=== PATIENT | male | born 2000 | race Caucasian/White ===

== ENCOUNTER 2021-04-09 20:00 | Emergency (ER) | payer OTHER, SELFPAY ==
[2021-04-09 20:53] VITALS: BP 110/65; PULSE 94; RESP 20; TEMP 36.6; O2SAT 100
[2021-04-09 21:21] LABS: COVID19 -Nasal RAPID Negative (Negative)
[2021-04-09 21:55] VITALS: BP 124/58; PULSE 94; O2SAT 98
--- NOTE | 2021-04-10 05:50 | ED_ITS ---
HPI - URI/Sore Throat General Chief Complaint: Upper Respiratory Symptoms Stated Complaint: EXPOSED TO COVIDSINUS INFECTION RUNNY NOSE FATIGUE Time Seen by Provider: 04/09/21 21:55 Source: patient Mode of arrival: Ambulatory Limitations: no limitations History of Present Illness HPI Narrative: 20-year-old female former smoker with noncontributory medical history presents with significant other and a chief complaint of runny nose, nasal congestion and occasional hacking cough for the past few days. She was recently exposed to someone with COVID and wants to be tested. She denies any fever chills. She denies chest pain or shortness of breath. She denies nausea, vomiting or diarrhea. Review of Systems Review of Systems Narrative: GENERAL: See HPI. HEENT: See HPI RESPIRATORY: See HPI CARDIOVASCULAR: Denies chest pain, palpitations, orthopnea, edema, GASTROINTESTINAL: Denies nausea, vomiting, abdominal pain, diarrhea, constipation, melena. : Denies dysuria, frequency, incontinence, hematuria, urinary retention. MUSCULOSKELETAL: denies weakness, joint pain, or bony pain SKIN: Denies rash, skin lesions, or other NEUROLOGIC: Denies weakness, headache, numbness, change in speech, confusion, seizures, incoordination. PSYCHIATRIC: No concerning psychosocial issues. 12 point review of systems is negative except for those stated above Patient History Social History Smoking Status: Former smoker Smoking Status: Former smoker alcohol intake frequency: a few times a month Substance Use Type: does not use Exam Narrative Exam Narrative: GENERAL: [] year old patient appears stated age. Well-developed patient, in mild distress. HEAD: Atraumatic. Normocephalic. EYES: Pupils equal round and reactive. Extraocular motions intact. No scleral icterus. No injection or drainage. ENT: Clear bilateral nasal drainage, mild clear postpharyngeal drainage NECK: Trachea midline. Non tender CARDIOVASCULAR: Regular rate and rhythm without murmurs, gallops, or rubs. RESPIRATORY: Clear to auscultation. Breath sounds equal bilaterally. No wheezes, rales, or rhonchi. GASTROINTESTINAL: Abdomen soft, non-tender, nondistended. EXTREMITIES: No edema or joint tenderness. BACK: Nontender without deformity or crepitance. No flank tenderness. NEURO: AOx3. SKIN: No rash or erythema of visible areas Initial Vital Signs Initial Vital Signs: Vital Signs Temperature 97.9 F 04/09/21 20:53 Pulse Rate 94 H 04/09/21 20:53 Respiratory Rate 20 04/09/21 20:53 Blood Pressure 110/65 04/09/21 20:53 Pulse Oximetry 100 04/09/21 20:53 Course Orders Ordered: ED Orders 04/09/21 21:55 COVID19 -Nasal swab/Pre-Proc Stat Vital Signs Vital signs: Vital Signs - 8 hr 04/09/21 21:55 Pulse Rate 94 H Blood Pressure 124/58 L Pulse Oximetry 98 MDM - URI/Sore Throat Lab Data Labs: Lab Results 04/09/21 Range/Units 21:00 SARS-CoV-2 (PCR) Negative (Negative) Discharge Plan Departure Patient Disposition: Home Clinical Impression: Upper respiratory infection Qualifiers: URI type: unspecified viral URI Qualified Code(s): J06.9 - Acute upper respiratory infection, unspecified Instructions: DI for Viral Upper Respiratory Infection -- Adult Activity Restrictions/Additional Instructions: *You have been diagnosed with [Viral Upper Respiratory infection or severe allergies, your COVID-19 test was negative, but as we discussed please follow the following precautions for the next few days until you can get retested] *What to do: * per recommendations from the CDC and the [facility] Department of Health * stay home except to get medical care. Restrict activities outside your home, except for getting medical care. Do not go to work, school, or public areas. Avoid using public transportation, ride sharing, or taxis. * separate yourself from other people in your home. * call ahead before visiting your doctor * Wear a facemask * Cover your coughs and sneezes * Clean your hands often * Avoid sharing household items * Clean all high-touch services every day * Monitor your symptoms and seek prompt medical attention if your illness is worsening, particularly with difficulty in breathing. You may discontinue your isolation when: 1. You have been fever-free for at least 24 hours without the use of fever reducing medication, AND 2. Your symptoms are getting better 3. At least 10 days have passed since symptoms first appeared Individuals with laboratory confirmed COVID-19 who have not had any symptoms may discontinue home isolation when at least 10 days have passed since the date of their first COVID-19 diagnostic test and have had no subsequent illness
== END 2021-04-09 22:49 | disposition home or self-care (01) ==
PROVIDERS: Emergency Provider Emergency Medicine
DX: J06.9 Acute upper respiratory infection, unspecified (principal); R05 Cough; Z20.822 Contact with and (suspected) exposure to COVID-19
CPT/HCPCS: 87635; 99282; C9803

== ENCOUNTER 2021-04-22 15:37 | Emergency (ER) | payer OTHER, SELFPAY ==
[2021-04-22 15:52] VITALS: BP 111/69; PULSE 88; RESP 16; TEMP 36.6; O2SAT 100; BMI 25.0
[2021-04-22 16:26] LABS: COVID19 -Nasal RAPID Negative (Negative)
--- NOTE | 2021-04-22 17:17 | ED_ITS ---
HPI - Recheck/Abnormal Lab/Rx General Chief Complaint: Recheck/Abnormal Lab/Rx Stated Complaint: SOB- needs covid retest Time Seen by Provider: 04/22/21 17:05 Source: patient Mode of arrival: Ambulatory History of Present Illness HPI narrative: Patient is a 20-year-old on immunized individual who is here for evaluation and have a COVID test performed. Patient was seen 2 days ago and had a negative test. Symptoms are improving but was told to return in a couple days for repeat testing. Patient also states that she is going on a trip in needs a test. Related Data Allergies Allergy/AdvReac Type Severity Reaction Status Date / Time No Known Drug Allergies Allergy Verified 04/22/21 15:53 Review of Systems Constitutional Constitutional: Denies fever(s) ENT Ears, Nose, Mouth, and Throat: Reports system reviewed and no additional complai nts, except as documented Cardiovascular Cardiovascular: Reports dyspnea Respiratory Respiratory: Reports dyspnea Gastrointestinal Gastrointestinal: Reports system reviewed and no additional complaints, except as documented Integumentary/Breasts Skin/Breast: Reports system reviewed and no additional complaints, except as documented Neurologic Neurologic: Reports system reviewed and no additional complaints, except as documented Hematologic/Lymphatic Hematologic/Lymphatic: Reports system reviewed and no additional complaints, except as documented Patient History Medical History Upper respiratory infection Social History Smoking Status: Current every day smoker Smoking Status: Current every day smoker tobacco type: vaping alcohol intake frequency: a few times a month Substance Use Type: does not use Exam Initial Vital Signs Initial Vital Signs: Vital Signs Temperature 98 F 04/22/21 15:52 Pulse Rate 88 04/22/21 15:52 Respiratory Rate 16 04/22/21 15:52 Blood Pressure 111/69 04/22/21 15:52 Pulse Oximetry 100 04/22/21 15:52 HENMT Head: normal to inspection and normocephalic Resp Effort & Inspection: normal respiratory effort Auscultation: clear to auscultation bilaterally Cardio Rate: regular rate Skin General: no rashes or lesions noted Neuro General: patient alert, patient awake, patient oriented x3 and moves all extremities Extrem General: normal to inspection and capillary refill normal Psych Appearance: grossly normal Course Orders Ordered: ED Orders 04/22/21 15:55 COVID19 -Nasal swab/Pre-Proc Stat Vital Signs Vital signs: Vital Signs - 8 hr 04/22/21 15:52 Temperature 98 F Pulse Rate 88 Respiratory Rate 16 Blood Pressure 111/69 Pulse Oximetry 100 MDM - Recheck/Abnormal Lab/Rx Lab Data Labs: Lab Results 04/22/21 Range/Units 15:55 SARS-CoV-2 (PCR) Negative (Negative) MDM Narrative Medical decision making narrative: Patient's COVID test is negative. She has an unremarkable exam. She was given a copy of her negative COVID results. She was given return precautions and follow-up instructions. She expressed understa nding and agreement. Discharge Plan Departure Patient Disposition: Home Clinical Impression: Encounter for screening laboratory testing for COVID-19 virus Instructions: About the COVID-19 Vaccine, Can COVID-19 be prevented? Activity Restrictions/Additional Instructions: Your COVID-19 test today was negative. Contact your primary doctor for follow- up. Return to the emergency department for any new or worsening symptoms
== END 2021-04-22 17:32 | disposition home or self-care (01) ==
PROVIDERS: Emergency Provider Emergency Medicine
DX: R06.00 Dyspnea, unspecified (principal); Z20.822 Contact with and (suspected) exposure to COVID-19
CPT/HCPCS: 87635; 99281; 99282; C9803

== ENCOUNTER 2021-05-07 18:43 | Emergency (ER) | payer OTHER, SELFPAY ==
[2021-05-07 18:58] VITALS: BP 115/70; PULSE 97; RESP 16; TEMP 37; O2SAT 100; BMI 25.0
[2021-05-07 19:19] LABS: COVID19 -Nasal RAPID Negative (Negative)
--- NOTE | 2021-05-07 19:21 | ED_ITS ---
HPI - URI/Sore Throat <Keith Ley PA-C - Last Filed: 05/07/21 19:32> General Chief Complaint: Upper Respiratory Symptoms Stated Complaint: cough/nausea x3 days Time Seen by Provider: 05/07/21 19:07 Source: patient Mode of arrival: Family Vehicle Limitations: no limitations History of Present Illness HPI Narrative: Ashley is a otherwise healthy 20-year-old female that is not vaccinated against COVID who presents today with occasional cough over the last 2 days, slight nausea, and mild sore throat. She reports feeling well but would like a COVID swab at this time. She denies any fever, difficulty breathing, chest pain, abdominal pain, vomiting, diarrhea, constipation or any other acute concerns or complaints at this time. Related Data Allergies Allergy/AdvReac Type Severity Reaction Status Date / Time No Known Drug Allergies Allergy Verified 05/07/21 19:02 Review of Systems <Keith Ley PA-C - Last Filed: 05/07/21 19:32> Review of Systems Narrative: As per HPI Patient History <Keith Ley PA-C - Last Filed: 05/07/21 19:32> Medical History Upper respiratory infection Social History Smoking Status: Current every day smoker Smoking Status: Current every day smoker tobacco type: vaping alcohol intake frequency: a few times a week Alcohol type: beer and hard liquor Substance Use Type: marijuana Exam <Keith Ley PA-C - Last Filed: 05/07/21 19:32> Narrative Exam Narrative: Const General: cooperative, healthy appearing, comfortable and no acute distress Nutritional Appearance: average body habitus and well nourished Orientation: alert and oriented x3 HENMT Head: normal to inspection and normocephalic Ears: hearing grossly normal bilaterally, external ears normal, TM's normal bilaterally, EAC's normal, mastoids normal and no periauricular adenopathy Nose: external nose normal, nares normal and no nasal discharge Face and sinus: normal facial exam, sinuses nontender and face symmetric Mouth: oral mucosae normal, lip normal, tongue normal and moist mucous membranes Teeth and gingiva: dentition normal and gingiva normal Throat: posterior oropharynx normal, uvula midline, no postnasal drainage and no uvular edema Eyes periorbital findings normal, eyelids normal, conjunctivae normal Neck: normal visual inspection, full ROM, no lymphadenopathy, no meningeal signs and supple Resp normal respiratory effort, able to speak in complete sentences, not labored and no respiratory distress, clear to auscultation bilaterally, no crackles, no rales and no wheezes Cardio regular rate regular rhythm Heart Sounds: no gallops, no murmurs and no rubs Initial Vital Signs Initial Vital Signs: Vital Signs Temperature 98.6 F 05/07/21 18:58 Pulse Rate 97 H 05/07/21 18:58 Respiratory Rate 16 05/07/21 18:58 Blood Pressure 115/70 05/07/21 18:58 Pulse Oximetry 100 05/07/21 18:58 <Jhoana Lopez MD - Last Filed: 05/08/21 02:44> Initial Vital Signs Initial Vital Signs: Vital Signs Temperature 98.6 F 05/07/21 18:58 Pulse Rate 97 H 05/07/21 18:58 Respiratory Rate 16 05/07/21 18:58 Blood Pressure 115/70 05/07/21 18:58 Pulse Oximetry 100 05/07/21 18:58 Course <Keith Ley PA-C - Last Filed: 05/07/21 19:32> Orders Ordered: ED Orders 05/07/21 18:50 COVID19 -Nasal swab/Pre-Proc Stat Vital Signs Vital signs: Vital Signs - 8 hr 05/07/21 18:58 Temperature 98.6 F Pulse Rate 97 H Respiratory Rate 16 Blood Pressure 115/70 Pulse Oximetry 100 <Jhoana Lopez MD - Last Filed: 05/08/21 02:44> Orders Ordered: ED Orders 05/07/21 18:50 COVID19 -Nasal swab/Pre-Proc Stat Vital Signs Vital signs: Vital Signs - 8 hr 05/07/21 18:58 Temperature 98.6 F Pulse Rate 97 H Respiratory Rate 16 Blood Pressure 115/70 Pulse Oximetry 100 MDM - URI/Sore Throat <Keith Ley PA-C - Last Filed: 05/07/21 19:32> Lab Data Labs: Lab Results 05/07/21 Range/Units 18:50 SARS-CoV-2 (PCR) Negative (Negative) MDM Narrative Medical decision making narrative: She is well-appearing at this time and has reassuring vital signs. Physical examination is grossly normal. COVID test is negative. Recommend treating like viral upper respiratory infection. I offered COVID vaccination but patient declined at this time. ER return precautions were discussed. Patient verbalizes understanding and agrees to plan and has no further concerns at this time. Thank you A [id number] system was used with the dictation of this note. Please disregard any spelling or grammatical errors. <Jhoana Lopez MD - Last Filed: 05/08/21 02:44> Lab Data Labs: Lab Results 05/07/21 Range/Units 18:50 SARS-CoV-2 (PCR) Negative (Negative) Discharge Plan Departure Patient Disposition: Home Clinical Impression: Upper respiratory infection Qualifiers: URI type: unspecified URI Qualified Code(s): J06.9 - Acute upper respiratory infection, unspecified Activity Restrictions/Additional Instructions: It was nice to meet you this evening. Please use [id number] medications to help with your symptoms as needed. Feel free to return to the emergency department if you experience any significant chest pain, difficulty breathing or have any additional concerns or complaints. Otherwise, follow up with PCP as needed. Thank you Keith Ley PA-C <Jhoana Lopez MD - Last Filed: 05/08/21 02:44> [facility] ED Attending [place] Attestation: I was immediately available in the department for consultation throughout this patient's visit. I agree with documentation as above. Jhoana Lopez MD
== END 2021-05-07 19:49 | disposition home or self-care (01) ==
PROVIDERS: Emergency Medicine; Emergency Provider Physician Assistant
DX: J06.9 Acute upper respiratory infection, unspecified (principal); R11.0 Nausea; Z20.822 Contact with and (suspected) exposure to COVID-19
CPT/HCPCS: 87635; 99281; 99282; C9803

== ENCOUNTER 2021-06-12 13:39 | Emergency (ER) | payer OTHER, SELFPAY ==
[2021-06-12 13:48] VITALS: BP 117/82; PULSE 92; RESP 17; TEMP 37.2; O2SAT 99; BMI 25.0
--- NOTE | 2021-06-12 13:55 | ED.URI ---
HPI - URI/Sore Throat <Keith Ley PA-C - Last Filed: 06/12/21 16:31> General Chief Complaint: Upper Respiratory Symptoms Stated Complaint: cough/ no taste /tired Time Seen by Provider: 06/12/21 13:43 Source: patient Mode of arrival: Ambulatory History of Present Illness HPI Narrative: Ashley presents today with chief complaint of requesting a COVID test. She is going on a flight tomorrow and has had mild cough and questionable changes in her taste over the last 1-2 weeks. She is unsure if this is related to her mold remediation that she is doing at her house or if this represents an infection of COVID. She denies any significant fever, headache, chest pain, shortness of breath, abdominal pain, nausea, vomiting or any other acute concerns or complaints at this time. She is otherwise healthy and has no known significant past medical problems. Patient is not vaccinated against COVID. She denies any significant known sick contacts. Related Data Home Medications Medication Instructions Recorded Confirmed No Known Home Medications 06/12/21 06/12/21 Allergies Allergy/AdvReac Type Severity Reaction Status Date / Time No Known Drug Allergies Allergy Verified 06/12/21 13:51 Review of Systems <Keith Ley PA-C - Last Filed: 06/12/21 16:31> Review of Systems Narrative: As per HPI Patient History <Keith Ley PA-C - Last Filed: 06/12/21 16:31> Medical History Upper respiratory infection Social History Smoking Status: Current every day smoker Smoking Status: Current every day smoker tobacco type: vaping alcohol intake frequency: a few times a week Alcohol type: beer and hard liquor Substance Use Type: marijuana Exam <Keith Ley PA-C - Last Filed: 06/12/21 16:31> Narrative Exam Narrative: Const General: cooperative, healthy appearing, comfortable and no acute distress Nutritional Appearance: average body habitus and well nourished Orientation: alert and oriented x3 HENMT Head: normal to inspection and normocephalic Ears: hearing grossly normal bilaterally, external ears normal Nose: external nose normal, nares normal and no nasal discharge Face and sinus: normal facial exam, sinuses nontender and face symmetric Mouth: oral mucosae normal, lip normal, tongue normal and moist mucous membranes Teeth and gingiva: dentition normal and gingiva normal Throat: posterior oropharynx normal, uvula midline, no postnasal drainage and no uvular edema Eyes periorbital findings normal, eyelids normal, conjunctivae normal Neck: normal visual inspection, full ROM, no lymphadenopathy, no meningeal signs and supple Resp normal respiratory effort, able to speak in complete sentences, not labored and no respiratory distress, clear to auscultation bilaterally, no crackles, no rales and no wheezes Cardio regular rate regular rhythm Heart Sounds: no gallops, no murmurs and no rubs Neuro Alert and Oriented x3, normal gait, moves all extremities. Initial Vital Signs Initial Vital Signs: Vital Signs Temperature 98.9 F 06/12/21 13:48 Pulse Rate 92 H 06/12/21 13:48 Respiratory Rate 17 06/12/21 13:48 Blood Pressure 117/82 06/12/21 13:48 Pulse Oximetry 99 06/12/21 13:48 <Silvio Woodward MD - Last Filed: 06/12/21 17:59> Initial Vital Signs Initial Vital Signs: Vital Signs Temperature 98.9 F 06/12/21 13:48 Pulse Rate 92 H 06/12/21 13:48 Respiratory Rate 17 06/12/21 13:48 Blood Pressure 117/82 06/12/21 13:48 Pulse Oximetry 99 06/12/21 13:48 Course <Keith Ley PA-C - Last Filed: 06/12/21 16:31> Orders Ordered: ED Orders 06/12/21 13:45 COVID19 -Nasal swab/Pre-Proc Stat Vital Signs Vital signs: Vital Signs - 8 hr 06/12/21 13:48 06/12/21 14:45 Temperature 98.9 F Pulse Rate 92 H 86 Respiratory Rate 17 18 Blood Pressure 117/82 Pulse Oximetry 99 99 <Silvio Woodward MD - Last Filed: 06/12/21 17:59> Orders Ordered: ED Orders 06/12/21 13:45 COVID19 -Nasal swab/Pre-Proc Stat Vital Signs Vital signs: Vital Signs - 8 hr 06/12/21 13:48 06/12/21 14:45 Temperature 98.9 F Pulse Rate 92 H 86 Respiratory Rate 17 18 Blood Pressure 117/82 Pulse Oximetry 99 99 MDM - URI/Sore Throat <Keith Ley PA-C - Last Filed: 06/12/21 16:31> Lab Data Labs: Lab Results 06/12/21 Range/Units 13:45 SARS-CoV-2 (PCR) Negative (Negative) MDM Narrative Medical decision making narrative: Patient is well-appearing at this time. Her vital signs are reassuring and history is also reassuring for no significant disease. COVID test came back negative. Recommend following up with PCP at this time as needed. Patient verbalizes understanding and agrees to plan and has no further concerns at this time. Thank you A [id number] system was used with the dictation of this note. Please disregard any spelling or grammatical errors. <Silvio Woodward MD - Last Filed: 06/12/21 17:59> Lab Data Labs: Lab Results 06/12/21 Range/Units 13:45 SARS-CoV-2 (PCR) Negative (Negative) Discharge Plan Departure Patient Disposition: Home Clinical Impression: Upper respiratory infection Qualifiers: URI type: unspecified URI Qualified Code(s): J06.9 - Acute upper respiratory infection, unspecified Activity Restrictions/Additional Instructions: It was nice to meet you this afternoon. Your evaluation today has been reassuring. Your COVID test here today was negative. Enjoy your travels and follow-up with your PCP as needed. Thank you Keith Ley PA-C Prescriptions: No Action No Known Home Medications RF: 0
[2021-06-12 14:22] LABS: COVID19 -Nasal RAPID Negative (Negative)
[2021-06-12 14:45] VITALS: PULSE 86; RESP 18; O2SAT 99
== END 2021-06-12 14:35 | disposition home or self-care (01) ==
PROVIDERS: Emergency Provider Physician Assistant
DX: J06.9 Acute upper respiratory infection, unspecified (principal); Z20.822 Contact with and (suspected) exposure to COVID-19
CPT/HCPCS: 87635; 99281; 99282; C9803